=== PATIENT | male | born 1980 | race Caucasian/White ===

== ENCOUNTER 2024-06-27 01:00 | Emergency (ER) | payer OTHER, SELFPAY ==
[2024-06-27] VITALS (14 sets, daily range): BP systolic 101–136; BP diastolic 76–99; BMI 25.0
--- NOTE | 2024-06-27 01:41 | ED.GENMED ---
History of Present Illness
General
Chief Complaint: Chest Pain
Source: patient and records
Exam Limitations: none
Time Seen by Provider: 06/27/24 01:13
Nursing documentation reviewed up to this point in time: agreed with
History of Present Illness
History of Present Illness:
43-year-old male with past medical history of anxiety and depression presents to the emergency department for evaluation of chest pain. Patient reports onset of symptoms 2 days ago and they have been constant since that time although today they
feel worse. He reports pressure in his chest 'like someone stepping on my chest.' He says it radiates towards his back. Associated with nausea. He reports he has had a headache. He says that he has had some mild shortness of breath. He says
that he had surgery in his right leg for a fracture 3 years ago and has chronic soreness but he feels it has been a bit worse. He says that he has been drinking heavily for the past few days and he thinks he could have pancreatitis again�chart
review shows multiple previous visits for pancreatitis. In addition to physical complaints as above he says that he has been very depressed for the past few days because his cat . He says that over the weekend he was crying uncontrollably. He
says that over the weekend he even had some suicidal thoughts but he says that he does not feel suicidal at present.
Past History
Past History
ED Past Medical History: Other (Pancreatitis)
ED Past Surgical History: Orthopedic
Social History
Tobacco: Non-smoker
Alcohol: Occasional
Living: with family
Employment: Employed
Review of Systems
Review of Systems
All Other Systems: ROS reviewed and negative except as documented in HPI and ROS
Constitutional: Denies fever or chills
Respiratory: Reports trouble breathing; Denies cough
Cardiac: Reports chest pain; Denies diaphoresis or palpitations
ABD/GI: Reports abdominal pain and nausea; Denies vomiting or diarrhea
: Denies dysuria, frequency or flank pain
Musculoskeletal: Reports muscle pain and back pain; Denies neck pain
Neurological: Reports headache; Denies dizzy, weakness or numbness
Phy Exam
Physical Exam
Physical Exam:
General: Awake, alert, oriented x3; anxious and tearful
Head: Normocephalic, atraumatic
Eyes: Conjunctiva normal
Throat: Airway intact, handling secretions
Neck: Trachea midline, supple without meningismus
Lungs: Clear to auscultation bilaterally, no wheezing, rales, rhonchi
Heart: Regular rate and rhythm, no murmurs, gallops, or rubs
Abd: Soft, non distended, mild tenderness in the epigastrium
Neuro: No gross deficits
Extremities: No edema in extremities, no calf tenderness, equal pulses in all extremities
Scores
Heart Failure Risk
Heart Failure Risk Score: Not Applicable
Heart Score for Chest Pain Patients
STEMI patient?: No
History: Slightly or Non-Suspicious
ECG: Normal
Age: </= 45 years
Risk Factors: No Risk Factors
Troponin: </= Normal Limit
Heart Score for Chest Pain Patients: 0
Heart Score Risk: 2.5% MACE over next 6 weeks
PE Wells Score
Symptoms of DVT: No
No alternative diagnosis better explains the illness: No
Tachycardia with pulse > 100: No
Immobilization (>=3 days) or surgery within previous 4 weeks: No
Prior history of DVT or pulmonary embolism: No
Presence of hemoptysis: No
Presence of malignancy: No
Pulmonary Embolism Risk Score: 0
Probability of PE: Pt is low risk
Withdrawal Assessment of Alcohol
Withdrawal Assessment Completed?: Not applicable
Course
Orders/Labs/Results
Orders:
Orders
06/27/24 01:02
ECG [Electrocardiogram (*1)] Urgent
Reason for Study: Chest Pain
EKG- Treatment ONCE
06/27/24 01:14
CR Chest - 2 Views Urgent
Comment:
Reason For Exam: cp
06/27/24 01:18
Crisis Consult Urgent
Reason for Consult: pt was feeling suicidal this past weekend; here with anxiety/depression
06/27/24 01:44
0.9% Sodium Chloride 1000 ml [Nss] 1,000 ml IV BOLUS
Ketorolac [Toradol] 15 mg IV NOW STA
06/27/24 01:46
Alcohol Urgent
Complete Blood Count/With Diff Urgent
Comprehensive Metabolic Panel Urgent
D-Dimer Urgent
LDH Urgent
Comment: ADD ON
Lipase Urgent
Troponin I Urgent
Urine Drug Abuse Screen Urgent
Date Specimen was Collected: 06/27/24
Time Specimen was Collected: 01:40
06/27/24 02:12
Add On- LAB Urgent
Tests Added?: LDH
06/27/24 02:14
ED Special Safety Observation ONCE
Observation level: Intermittent Observation
06/27/24 02:59
US Periph Venous LOWER Ext RT Urgent
Comment:
Reason For Exam: RLE pain, +dimer
06/27/24 03:15
HYDROmorphone [Dilaudid] 0.5 mg IV NOW STA
06/27/24 03:16
Thiamine Injection 100 mg IV NOW STA
06/27/24 03:30
0.9% Sodium Chloride 1000 ml [Nss] 1,000 ml IV 100 mls/hr
06/27/24 04:00
FOLic ACID [Folvite] 1 mg 0.9% Sodium Chloride 50 ml [Nss] 50 ml IV ONCE
06/27/24 04:04
CT Chest PE Study Urgent
Comment:
Reason For Exam: chest pain/back pain, +dimer
06/27/24 04:16
Mag Hydrox/Al Hydrox/Simeth [Maalox] 30 ml Phenobarb/Hyoscy/Atropine/Scop [] 10 ml Viscous Lidocaine 2% [Xylocaine Viscous Cup] 10 ml PO NOW
Pantoprazole [Protonix IV] 40 mg IV NOW STA
06/27/24 04:35
Mag Hydrox/Al Hydrox/Simeth [Maalox] 30 ml .ROUTE .STK-MED ONE
Phenobarb/Hyoscy/Atropine/Scop [] 10 ml .ROUTE .STK-MED ONE
Viscous Lidocaine 2% [Xylocaine Viscous Cup] 15 ml .ROUTE .STK-MED ONE
06/27/24 06:12
Alcohol Urgent
Abnormal Lab Results
06/27/24
01:46
RBC 4.52 L 10^6/uL
(4.70-6.10)
RDW 16.0 H %
(11.5-14.5)
Neutrophils % 32.1 L %
(42.2-75.2)
Lymphocytes % 57.7 H %
(20.5-51.1)
D-Dimer 0.75 H ug/mlFEU
(0.00-0.50)
Sodium 148 H mmol/L
(135-145)
Carbon Dioxide 31 H mmol/L
(22-30)
06/27/24 01:46
06/27/24 01:46
Vital Signs
Initial and Last Documented VS:
Initial Vital Signs
Temp Pulse Resp BP Pulse Ox
37.0 C 99 24 136/98 95
06/27/24 01:10 06/27/24 01:10 06/27/24 01:10 06/27/24 01:10 06/27/24 01:10
Last Documented Vital Signs
Temp Pulse Resp BP Pulse Ox
37.0 C 86 21 124/92 97
06/27/24 01:10 06/27/24 06:15 06/27/24 06:15 06/27/24 06:00 06/27/24 06:15
MDM/Problems Addressed
Differential Diagnosis Includes:
Pancreatitis, gastritis, GERD, ACS/angina, PE, pneumothorax, pneumonia
MDM/Problems Addressed:
43-year-old male presents for evaluation of chest pain rating to the back with multiple other associated signs and symptoms. Symptoms occurring in the setting of recent heavy alcohol use due to the of his cat. He also reports depression and
suicidal thoughts because of this. He does have multiple prior visits for acute pancreatitis. Vitals and exam as above. EKG shows sinus rhythm no STEMI. Will place an IV check labs including a CBC and a CMP, troponin, lipase. He did report some
acute on chronic right leg pain�she has no signs or symptoms of DVT but will check D-dimer. Check alcohol level. Will send for chest x-ray. Treat symptomatically. Given fluids, thiamine and folate. Reassess after the above. I did discuss with
crisis to assess once medically cleared.
Labs reviewed: CBC unremarkable, CMP no clinically significant abnormalities. Troponin undetectable. Lipase is still pending. D-dimer was elevated will check ultrasound of the right leg, CT chest. UDS negative. Alcohol level pending. Chest
x-ray reviewed by me shows no acute disease. Patient still having pain we will provide additional pain control. Reassess.
CTA shows no PE or other acute pathology. At this point I have very low suspicion for emergent pathology. Suspect likely acute alcoholic gastritis causing lower chest/back pain as well as some component of anxiety which patient admits. He was
treated symptomatically and feels improved. Will discussed with crisis for assessment regarding his suicidal thoughts.
Crisis performed their assessment and had a long discussion with the patient�no longer feeling suicidal he plans to follow-up with his therapist. He is forward thinking and goal oriented�says he is planning to buy a new cat and start going back to
the gym. No indication for involuntary psychiatric treatment and I think outpatient follow-up with a therapist is a reasonable plan. Advised alcohol cessation. Alcohol level downtrending. He is planning to call his partner to pick him up to take
him home�I think he is stable for discharge.
Chronic conditions affecting care:
Anxiety and depression
*Radiology
Radiology exam reviewed: preliminary read by ED provider
*Pulse Oximetry
Patient hypoxic: no
*EKG
Interpreted by ED Provider?: Yes
Heart Rate: 77
Rate: normal
Rhythm: sinus
[place]: normal axis
Interval: normal interval
QRS Pattern: normal QRS
Ischemia: no ischemia
*Critical Care Note
Total Time (30-74mins, 75-104mins- exclusive of procedures): Not Applicable
Data Reviewed
Review of Other/Old Records Reveals: Labs and Records
Source: patient and records
Patient Management
Discussion with other providers: Other (Discussed with crisis staff)
ED Attending Note
-
Portions of this chart may have been created with voice recognition software.� Occasional wrong word or��sound alike� substitutions may have occurred due to the inherent limitations of voice recognition software.
Discharge Plan
Departure
Patient with high blood pressure during this ER visit?: No
Discharge Problem:
Chest pain, Alcoholic gastritis, Alcohol intoxication, Leg pain, right
Instructions: Gastritis, Alcohol intoxication - ED discharge instructions, Chest Pain PCP Follow Up
Prescriptions:
No Action
milk thistle 175 MG tablet
175 mg PO DAILY
turmeric 400 MG capsule
400 mg PO DAILY
Theragen Tablet
1 tab PO DAILY
cyanocobalamin (vitamin B-12) 250 mcg Tablet
250 mcg PO DAILY
Visbiome 112.5 billion cell Capsule
1 cap PO DAILY
salmon oil-omega-3 fatty acids 1,000-210 mg Capsule
1 cap PO DAILY
fluoxetine 40 mg Capsule
40 mg PO DAILY
Referrals:
UNKNOWN - PT DOES,NOT KNOW [Family Provider] -
Activity Restrictions/Additional Instructions:
Thank you for visiting the Emergency Department at [facility].
1. Please schedule a follow up appointment as directed. Call first thing tomorrow morning to make an appointment.
2. If indicated, please take your medications as instructed and indicated on discharge paperwork.
3. If any of your symptoms do not improve, or persist, or become more severe within 6-12 hours, please return to the emergency department for further care.
4. Please return to the emergency department if you develop a headache, neck pain/stiffness, fever greater than 100.4F, chest pain, shortness of breath, persistent nausea, vomiting, slurred speech, difficulty walking, numbness/tingling, weakness,
signs of infection or any other symptoms that are worrisome to you.
Please call [phone] if you have any questions.
Interventions
Interventions:
*Risk Screen - Suicide Last Done: 06/27/24 01:10
*General Assessment Last Done: 06/27/24 06:49
*Neglect/Abuse Screening Last Done: 06/27/24 01:10
*ED- Fall Risk Assessment Last Done: 06/27/24 01:10
*ED COVID-19 Vaccine History Last Done: 06/27/24 01:10
ED- Cardiac Assessment Last Done: 06/27/24 02:09
Discharge Date and Time
Print Language: ARGENTINE
[2024-06-27 01:58] LABS: Hematocrit 39.3 % (39.0-52.0); Hemoglobin 13.6 g/dL (13.0-18.0); Mean Corp Hgb Conc. 34.6 g/dL (33.0-37.0); Mean Corpuscular Hgb 30.1 pg (27.0-31.0); Mean Corpuscular Volume 86.9 fL (80.0-94.0); Mean Platelet Volume 9.3 fL (7.4-10.4); Platelet Count 217 10^3/uL (130-400); Red Blood Cell Count 4.52 10^6/uL (4.70-6.10); White Blood Cell Count 4.8 10^3/uL (4.8-10.8)
[2024-06-27] MEDS: NSS 1000 IV ×2 (02:03→03:58)
[2024-06-27] MEDS: TORADOL 15 MG IV (02:04)
[2024-06-27 02:09] LABS: % Basophils 0.8 % (0-2); % Eosinophils 1.5 % (0-6); % Lymphocytes 57.7 % (20.5-51.1); % Monocytes 7.9 % (1.7-9.3); % Neutrophils 32.1 % (42.2-75.2); Absolute Eosinophils 0.1 10^3/uL (0-0.7); Absolute Lymphocytes 2.8 10^3/uL (1.2-3.4); Absolute Monocytes 0.4 10^3/uL (0.1-0.6); Absolute Neutrophils 1.6 10^3/uL (1.4-6.5); Nucleated Red Blood Cells % 0 % (-)
[2024-06-27 02:23] LABS: ALT (SGPT) 31 U/L (0-50); AST (SGOT) 49 U/L (17-59); Albumin 4.5 g/dl (3.5-5.0); Alkaline Phosphatase 83 U/L (38-126); Blood Urea Nitrogen 11 mg/dl (9-20); Calcium 8.6 mg/dl (8.4-10.2); Carbon Dioxide 31 mmol/L (22-30); Chloride 107 mmol/L (98-107); Estimated Creatinine Clearance > 125 ml/min; Glucose 96 mg/dl (70-99); Potassium 4.3 mmol/L (3.5-5.1); Sodium 148 mmol/L (135-145); Total Bilirubin 0.4 mg/dl (0.2-1.3); eGFR > 60.00
[2024-06-27 02:30] LABS: Troponin I < 0.012 ng/ml
[2024-06-27 02:35] LABS: Amphetamines Negative (Negative); Barbiturates Negative (Negative); Benzodiazepines Negative (Negative); Buprenorphine Negative (Negative); Cocaine Negative (Negative); Marijuana Negative (Negative); Methadone Negative (Negative); Methamphetamines Negative (Negative); Opiates Negative (Negative); Phencyclidine Negative (Negative); Tricyclic Antidepressants Negative (Negative)
[2024-06-27 02:37] LABS: D-Dimer 0.75 ug/mlFEU (0.00-0.50)
[2024-06-27] MEDS: DILAUDID 0.5 MG IV (03:24)
[2024-06-27 03:49] LABS: LDH 229 U/L (120-246); Lipase 187 U/L (23-300)
[2024-06-27] MEDS: THIAMINE INJECTION 100 MG IV (03:53)
[2024-06-27 03:57] LABS: Alcohol 359 mg/dl
[2024-06-27] MEDS: FOLVITE 50.2 MG IV (04:41)
[2024-06-27] MEDS: MAALOX 50 PO (04:42)
[2024-06-27] MEDS: PROTONIX IV 40 MG IV (05:05)
[2024-06-27 06:36] LABS: Alcohol 269 mg/dl
[2024-06-27] MEDS: TYLENOL 1000 MG PO (07:20)
[2024-06-27] MEDS: NSS IV (13:53)
[2024-06-27 13:59] LABS: Alcohol 146 mg/dl
== END 2024-06-27 15:24 | disposition home or self-care (01) ==
LOC: EMR 01:00
PROVIDERS: EMERGENCY PHYSICIAN Emergency Medicine
DX: R07.9 Chest pain, unspecified (principal); K29.20 Alcoholic gastritis without bleeding; F10.129 Alcohol abuse with intoxication, unspecified; Y90.9 Presence of alcohol in blood, level not specified; M79.604 Pain in right leg; R79.1 Abnormal coagulation profile; Z86.39 Personal history of other endocrine, nutritional and metabolic disease
CPT/HCPCS: 99285; 96365; 96375; 96361; 71046; 71275; 80053; 80306; 82077; 83615; 83690; 84484; 85025; 85379; 93005; 93971; Q9967

== ENCOUNTER 2024-06-29 12:50 | Inpatient (IN) | payer OTHER, SELFPAY ==
[2024-06-29] VITALS (10 sets, daily range): BP systolic 136–172; BP diastolic 71–109; BMI 23.8
[2024-06-29 10:33] LABS: % Basophils 0.1 % (0-2); % Immature Granulocytes 0.6 % (0-0.5); % Lymphocytes 9.4 % (20.5-51.1); % Monocytes 6.7 % (1.7-9.3); % Neutrophils 83.2 % (42.2-75.2); Absolute Immature Granulocytes 0.1 10^3/uL (0-0.05); Absolute Lymphocytes 0.8 10^3/uL (1.2-3.4); Absolute Monocytes 0.6 10^3/uL (0.1-0.6); Absolute Neutrophils 7.3 10^3/uL (1.4-6.5); Hematocrit 37.7 % (39.0-52.0); Hemoglobin 13.1 g/dL (13.0-18.0); Mean Corp Hgb Conc. 34.7 g/dL (33.0-37.0); Mean Corpuscular Hgb 29.6 pg (27.0-31.0); Mean Corpuscular Volume 85.1 fL (80.0-94.0); Mean Platelet Volume 9.7 fL (7.4-10.4); Nucleated Red Blood Cells % 0 % (-); Platelet Count 183 10^3/uL (130-400); Red Blood Cell Count 4.43 10^6/uL (4.70-6.10); Red Cell Dist. Width 15.4 % (11.5-14.5); White Blood Cell Count 8.8 10^3/uL (4.8-10.8)
[2024-06-29 10:48] LABS: ALT (SGPT) 26 U/L (0-50); AST (SGOT) 37 U/L (17-59); Albumin 4.2 g/dl (3.5-5.0); Alkaline Phosphatase 92 U/L (38-126); Blood Urea Nitrogen 13 mg/dl (9-20); Calcium 9.2 mg/dl (8.4-10.2); Carbon Dioxide 23 mmol/L (22-30); Chloride 102 mmol/L (98-107); Estimated Creatinine Clearance > 125 ml/min; Glucose 123 mg/dl (70-99); Magnesium 1.4 mg/dl (1.6-2.3); Potassium 3.7 mmol/L (3.5-5.1); Sodium 137 mmol/L (135-145); Total Bilirubin 1.5 mg/dl (0.2-1.3); Total Protein 6.8 g/dl (6.3-8.2); eGFR > 60.00
[2024-06-29 10:52] LABS: Alcohol None Detected
[2024-06-29] MEDS: PEPCID 20 MG IV (10:53)
[2024-06-29] MEDS: ZOFRAN 4 MG IV (10:53)
[2024-06-29] MEDS: NSS 1000 IV (10:53)
[2024-06-29 11:19] LABS: Lipase > 4000 U/L (23-300)
[2024-06-29] MEDS: DILAUDID 0.5 MG IV (11:58)
--- NOTE | 2024-06-29 12:18 | ED.GENMED ---
History of Present Illness
General
Chief Complaint: Chest Pain
Source: patient
Exam Limitations: none
Time Seen by Provider: 06/29/24 10:38
History of Present Illness
History of Present Illness:
43-year-old male presents complaining of epigastric abdominal pain that radiates to the back with associated nausea vomiting and dry heaves. He was here 2 days ago for similar symptoms thought to have gastritis. PE study at that time was negative
lipase was negative. He notes ongoing and worsening symptoms now with inability tolerate anything by mouth. No fevers. No other
Past History
Past History
ED Past Medical History: Other (Pancreatitis)
ED Past Surgical History: Orthopedic
Social History
Tobacco: Non-smoker
Alcohol: Occasional
Living: with family
Employment: Employed
Phy Exam
Physical Exam
Physical Exam:
General: Well-appearing but uncomfortable male no acute respiratory distress
HEENT: Normocephalic atraumatic sclera anicteric
Heart: Regular rate rhythm
Lungs: Clear no wheeze
Abdomen soft tender to the epigastric region no guarding or rebound normal bowel sounds nondistended
Scores
Heart Score for Chest Pain Patients
STEMI patient?: No
History: Slightly or Non-Suspicious
ECG: Normal
Age: </= 45 years
Risk Factors: No Risk Factors
Troponin: </= Normal Limit
Heart Score for Chest Pain Patients: 0
Heart Score Risk: 2.5% MACE over next 6 weeks
Course
Orders/Labs/Results
Orders:
Orders
06/29/24 09:49
ECG [Electrocardiogram (*1)] Urgent
Reason for Study: Chest Pain
EKG- Treatment ONCE
06/29/24 10:23
Alcohol Urgent
Complete Blood Count/With Diff Urgent
Comprehensive Metabolic Panel Urgent
Lipase Urgent
Magnesium Urgent
06/29/24 10:48
0.9% Sodium Chloride 1000 ml [Nss] 1,000 ml IV BOLUS
Famotidine [Pepcid] 20 mg IV NOW STA
Ondansetron Injectable [Zofran] 4 mg IV NOW STA
06/29/24 11:40
HYDROmorphone [Dilaudid] 0.5 mg IV NOW STA
Abnormal Lab Results
06/29/24
10:23
RBC 4.43 L 10^6/uL
(4.70-6.10)
Hct 37.7 L %
(39.0-52.0)
RDW 15.4 H %
(11.5-14.5)
Abs Immat Gran (auto) 0.1 H 10^3/uL
(0-0.05)
Absolute Neuts (auto) 7.3 H 10^3/uL
(1.4-6.5)
Absolute Lymphs (auto) 0.8 L 10^3/uL
(1.2-3.4)
Immature Gran % 0.6 H %
(0-0.5)
Neutrophils % 83.2 H %
(42.2-75.2)
Lymphocytes % 9.4 L %
(20.5-51.1)
Glucose 123 H mg/dl
(70-99)
Magnesium 1.4 L mg/dl
(1.6-2.3)
Total Bilirubin 1.5 H D mg/dl
(0.2-1.3)
Lipase > 4000 H* U/L
(23-300)
06/29/24 10:23
06/29/24 10:23
Vital Signs
Initial and Last Documented VS:
Initial Vital Signs
Temp Pulse Resp BP Pulse Ox
98.4 F 67 18 169/96 100
06/29/24 09:56 06/29/24 09:56 06/29/24 09:56 06/29/24 09:56 06/29/24 09:56
Last Documented Vital Signs
Temp Pulse Resp BP Pulse Ox
97.6 F 69 23 136/71 100
06/29/24 10:22 06/29/24 10:22 06/29/24 10:22 06/29/24 10:22 06/29/24 10:22
MDM/Problems Addressed
Differential Diagnosis Includes:
Abdominal pain with back pain and nausea and back pain. History of pancreatitis. Consider recurrent pancreatitis versus gastritis versus viral illness
Reviewed record from 2 days ago. PE study of the chest was negative. Suspected gastritis at that time. Today lipase is greater than 4000. Patient has acute pancreatitis with significant pain and inability tolerate by mouth intake. Fluids Zofran
Dilaudid ordered. Will admit to hospital
*Critical Care Note
Total Time (30-74mins, 75-104mins- exclusive of procedures): Not Applicable
ED Attending Note
-
Portions of this chart may have been created with voice recognition software.� Occasional wrong word or��sound alike� substitutions may have occurred due to the inherent limitations of voice recognition software.
Discharge Plan
Departure
Patient Disposition: Admit
Date of Disposition: 06/29/24
Time of Disposition: 12:21
Presentation/result/management discussed w/ accepting MD/DO: Hospitalist
Discharge Problem:
Pancreatitis, acute
Prescriptions:
No Action
fluoxetine 40 mg Capsule
40 mg PO DAILY
pantoprazole 40 mg tablet,delayed release (DR/EC)
40 mg PO DAILY Qty: 30 0RF
Referrals:
Marybeth Humphrey PA [Family Provider] -
Interventions
Interventions:
*Risk Screen - Suicide Last Done: 06/29/24 09:56
*General Assessment Last Done: 06/29/24 09:56
*Neglect/Abuse Screening Last Done: 06/29/24 09:56
*ED- Fall Risk Assessment Last Done: 06/29/24 10:22
*ED COVID-19 Vaccine History Last Done: 06/29/24 10:22
ED- Cardiac Assessment Last Done: 06/29/24 10:22
Discharge Date and Time
Print Language: FRENCH
--- NOTE | 2024-06-29 12:26 | HPS.HSE ---
Family Physician
-
Family Physician: CLAYTON Blake
Chief Complaint
-
acute epigastric pain
History of Present Illness
43M HX ETOH related pancreatitis, ETOH use disorder seen at ER:
- acute epigastric abdominal pain that radiates to the back with associated nausea vomiting and dry heaves.
- seen at ER 2 days ago for similar symptoms thought to have gastritis.
- ongoing and worsening symptoms now with inability tolerate anything by mouth.
- No fevers
Medical History
Past Medical History
Past Medical History: Reports Other
Additional Past Medical History:
pancreatitis
Past Surgical History: Reports None
Social History
Tobacco: Non-smoker
Alcohol: Daily
Drug: None
Living: Alone
Employment: Employed
Family History
Family History: Not pertinent
Allergies / Home Medications
Allergies reflects when Allergies were last updated in [facility].
Home Medications with original date entered in [facility]
Allergy/Medication List:
Allergies
Allergy/AdvReac Type Severity Reaction Status Date / Time
No Known Allergies Allergy Verified 08/06/22 09:22
Home Medications
B-complex with vitamin C 1 cap PO DAILY Supplement 08/23/21
Oregano Oil/Flaxseed Oil [Oregano Oil 50-25 Mg Capsule] 1 cap PO DAILY 08/23/21
Super Colon Cleanse 2 cap PO BID 08/23/21
acetaminophen 325 mg tablet 650 mg PO Q4H PRN mild pain 08/23/21
gabapentin 300 mg capsule 300 mg PO TID PRN mild to mod pain 08/23/21
dcdtydtpnl-fpownxprywce-slpsok 100 mg-500 mg-50 mg capsule 1 cap PO DAILY Infection 08/23/21
melatonin 5 mg tablet 10 mg PO HS Sleep ##0 08/23/21
milk thistle 175 mg tablet 175 mg PO DAILY 08/23/21
oxycodone 10 mg tablet 10 mg PO BID PRN severe pain 08/23/21
peppermint oil 50 mg capsule,delayed release 50 mg PO DAILYPRN PRN ibs 08/23/21
salmon oil-omega-3 fatty acids 1,000 mg-200 mg capsule 1 cap PO DAILY 08/23/21
turmeric 400 mg capsule 400 mg PO DAILY 08/23/21
omeprazole 40 mg capsule,delayed release 40 mg PO DAILY 08/06/22
Review of Systems
-
Constitutional: Reports No Symptoms
EENT: Reports No Symptoms
Respiratory: Reports No Symptoms
Cardiac: Reports No Symptoms
Abdomen/GI: Reports Abdominal Pain, Nausea, Vomiting and Other (dry heaves )
: Reports No Symptoms
Musculoskeletal: Reports No Symptoms
Skin: Reports No Symptoms
Neurological: Reports No Symptoms
Endocrine: Reports No Symptoms
Hematologic/Lymphatic: Reports No Symptoms
Psych: Reports No Symptoms
Physical Exam
Vital Signs
Vital Signs
Temp Pulse Resp BP Pulse Ox
97.6 F 69 23 136/71 100
06/29/24 10:22 06/29/24 10:22 06/29/24 10:22 06/29/24 10:22 06/29/24 10:22
Physical Exam
General: Well Developed, Well Nourished and No Apparent Distress
HEENT: NormoCephalic, Moist mucous membranes and Atraumatic
Respiratory: Clear
Cardiac: S1/S2 and Regular Rhythm; No Murmur or Rub
GI: Soft, Non Tender, Non Distended and Normal Bowel Sounds; No Organomegaly
Rectal: Deferred by Provider
Musculoskeletal: No Clubbing, No Cyanosis and No Edema
Skin: No Rash
Neuro: AO x 3 and Nonfocal/grossly intact
Laboratory Results
-
06/29/24 10:23
06/29/24 10:23
Laboratory Results
Total Bilirubin 1.5 mg/dl (0.2-1.3) H D 06/29/24 10:23
AST 37 U/L (17-59) 06/29/24 10:23
ALT 26 U/L (0-50) 06/29/24 10:23
Alkaline Phosphatase 92 U/L (38-126) 06/29/24 10:23
Lipase > 4000 U/L (23-300) H* 06/29/24 10:23
Data Reviewed
-
CT Scan: Report Reviewed by me
Ultrasound: Report Reviewed by me
Lab Data: Labs Reviewed by me
Old Records: Reviewed
Impression/Plan
-
Selected Entries
06/29/24
09:56 06/29/24
10:21 06/29/24
10:22
Temp 98.4 F
Pulse 67 73
Resp Rate 18
Blood pressure 169/96 136/71
SaO2 100
Oxygen Mode of Delivery Room air
Actual Weight 81.647 kg
Body Mass Index (BMI) 23.8
06/29/24
10:23
WBC 8.8
Hgb 13.1
Plt Count 183
Creatinine 0.7
eGFR > 60.00
Magnesium 1.4 L
Total Bilirubin 1.5 H D
AST 37
ALT 26
Alkaline Phosphatase 92
Lipase > [address] Chest PE Study
1. No evidence of pulmonary embolism or thoracic aortic dissection.
2. Clear lungs.
US Periph Venous LOWER Ext RT
No evidence of right lower extremity deep venous thrombosis from the common femoral through the upper calf veins.
Last hospitalist admission: 08/06/2022 - 08/07/2022
DC DCx: Acute alcohol induced pancreatitis.
ASSESSMENT & PLAN
Pending Rx reconciliation
Acute pancreatitis - suspect recurrent ETOH related pancreatitis: Today, lipase is greater than 4000 with significant pain and inability to tolerate PO.
- pw Abdominal pain with back pain, vomiting.
- HX pancreatitis
- nl LFTs
- NPO
- LR IVF 200/H
- PRN Dilaudid analgesia
- PRN IV Zofran
- trend lipase and liver enzymes
- GI consult
ETOH use disorder
- Last ETOH use; on 06/24/24 ( 4-5 days ago)
- clinically low risk for ETOH WDS
- ETOH W protocol
- monitor MSAS score
HX f R leg surgery with chronic pain
- on Gabapentin/Oxycodone
DVT Px: LMWH
Full code
IP MS
--- NOTE | 2024-06-29 13:22 | EDRN ---
this RN called the receiving unit and notified them that paper report was going to be tubed up
[2024-06-29] MEDS: DILAUDID 1 MG IV ×3 (14:30→21:03)
[2024-06-29] MEDS: LR 1000 IV ×2 (14:31→20:15)
[2024-06-29] MEDS: COMPAZINE 10 MG IV (15:08)
[2024-06-29 15:51] LABS: GGTP 23 U/L (15-73)
[2024-06-29 15:53] LABS: Alcohol None Detected
[2024-06-29 16:46] LABS: APTT 25.6 Sec (23.4-35.0); PT 13.5 Sec (11.4-14.6)
[2024-06-29] MEDS: MAGNESIUM SULFATE 100 IV (17:18)
[2024-06-29] MEDS: COMPAZINE 5 MG IV (18:04)
[2024-06-29] MEDS: LOVENOX SC (18:10)
[2024-06-29 18:24] LABS: Amphetamines Negative (Negative); Barbiturates Positive (Negative); Benzodiazepines Negative (Negative); Buprenorphine Negative (Negative); Cocaine Negative (Negative); Marijuana Negative (Negative); Methadone Negative (Negative); Methamphetamines Negative (Negative); Opiates Positive (Negative); Phencyclidine Negative (Negative); Tricyclic Antidepressants Negative (Negative)
[2024-06-29 18:34] LABS: Fentanyl, Urine Negative (Negative)
[2024-06-29] MEDS: THIAMINE INJECTION 200 MG IV (20:09)
[2024-06-30] MEDS: DILAUDID 1 MG IV ×5 (00:04→20:32)
[2024-06-30] MEDS: COMPAZINE 5 MG IV ×2 (00:05→06:05)
[2024-06-30] MEDS: FLUSH (NSS) 2 FLUSH IV ×2 (00:06→06:06)
[2024-06-30] MEDS: LR 1000 IV ×4 (00:58→17:24)
[2024-06-30 07:04] LABS: Hematocrit 38.7 % (39.0-52.0); Mean Corp Hgb Conc. 33.6 g/dL (33.0-37.0); Mean Corpuscular Hgb 29.9 pg (27.0-31.0); Mean Platelet Volume 10.6 fL (7.4-10.4); Platelet Count 153 10^3/uL (130-400); Red Blood Cell Count 4.35 10^6/uL (4.70-6.10); Red Cell Dist. Width 15.6 % (11.5-14.5); White Blood Cell Count 8.7 10^3/uL (4.8-10.8)
[2024-06-30 07:39] VITALS: BP 136/83
[2024-06-30 07:53] LABS: ALT (SGPT) 22 U/L (0-50); AST (SGOT) 32 U/L (17-59); Albumin 3.5 g/dl (3.5-5.0); Alkaline Phosphatase 66 U/L (38-126); Blood Urea Nitrogen 10 mg/dl (9-20); Calcium 8.4 mg/dl (8.4-10.2); Carbon Dioxide 28 mmol/L (22-30); Chloride 99 mmol/L (98-107); Estimated Creatinine Clearance > 125 ml/min; Glucose 85 mg/dl (70-99); Magnesium 1.7 mg/dl (1.6-2.3); Phosphorus 3.4 mg/dl (2.5-4.5); Potassium 3.7 mmol/L (3.5-5.1); Sodium 134 mmol/L (135-145); Total Bilirubin 1.1 mg/dl (0.2-1.3); Total Protein 5.9 g/dl (6.3-8.2); eGFR > 60.00
[2024-06-30 08:06] LABS: Lipase 2645 U/L (23-300)
[2024-06-30] MEDS: FOLVITE 1 MG PO (08:21)
[2024-06-30] MEDS: NSS (PRESERVATIVE FREE) 10 ML IV (08:21)
[2024-06-30] MEDS: THIAMINE INJECTION 200 MG IV ×2 (08:21→20:25)
[2024-06-30] MEDS: PROTONIX IV 40 MG IV (08:22)
--- NOTE | 2024-06-30 08:26 | CON.GI ---
Addendum entered and electronically signed by Billy Hyde MD 06/30/24 08:58:
Physical exam:
General: NAD
HEENT: MMM, anicteric, no lymphadenopathy
Heart: Regular, no murmurs
Lungs: CTA bilaterally
Abdomen: normal bowel sounds, soft, minimal epigastric tenderness, no rebound or guarding, no masses, bruits or ascites
Extremeties: no edema
Skin: no rashes
Original Note:
Consultation
-
Date/Time Consultation Performed: 06/30/24
Performing Provider: Dell Hyde MD
Reason for Consultation: pancreatitis
Medical History
Chief Complaint / HPI
Chief Complaint: abdominal pain
History of Present Illness:
The patient is a 43-year-old male with past medical history as noted with pancreatitis and abdominal pain. He states that he started having more lower chest discomfort, after having significant alcohol, though then developed more abdominal pain
radiating to the back with associated nausea, consistent with his previous pancreatitis episodes. Upon admission he was found to have lipase greater than 4000, normal LFTs, hemoglobin 13.1. After IV fluids overnight he is been feeling much better,
with decreased pain, no further vomiting. He has had recurrent episodes of pancreatitis, initial imaging with probable pancreatic pseudocyst. Repeat MRI as a follow-up which showed decrease in size of the cyst. He did follow-up with Dr. Roper as an
outpatient, was scheduled to see him again this year in the office, though has not done so yet.
Past Medical History
Past Medical History: Other (Alcohol abuse, alcohol induced pancreatitis)
Past Surgical History: None
Social History
Tobacco: Non-Smoker
Alcohol: Daily
Family History
Family History: Reviewed & Not Pertinent
Allergies / Home Medications
Allergy/AdvReac Type Severity Reaction Status Date / Time
No Known Allergies Allergy Verified 06/29/24 09:55
�Medication �Instructions �Recorded
fluoxetine 40 mg capsule 40 mg PO DAILY 06/27/24
pantoprazole 40 mg tablet,delayed 40 mg PO DAILY #30 tabs 06/27/24
release
Review of Systems
-
All other systems: A 12 pt ROS was Negative except as stated above in HPI
Vital Signs
Temp Pulse Resp BP Pulse Ox
98.6 F 81 17 136/83 96
06/30/24 07:39 06/30/24 07:39 06/30/24 07:39 06/30/24 07:39 06/30/24 07:39
Physical Exam
Results
WBC 8.7 10^3/uL (4.8-10.8) 06/30/24 06:01
Hgb 13.0 g/dL (13.0-18.0) 06/30/24 06:01
Hct 38.7 % (39.0-52.0) L 06/30/24 06:01
MCV 89.0 fL (80.0-94.0) 06/30/24 06:01
Plt Count 153 10^3/uL (130-400) 06/30/24 06:01
Absolute Neuts (auto) 7.3 10^3/uL (1.4-6.5) H 06/29/24 10:23
PT 13.5 Sec (11.4-14.6) 06/29/24 16:16
INR 1.00 06/29/24 16:16
APTT 25.6 Sec (23.4-35.0) 06/29/24 16:16
Sodium 134 mmol/L (135-145) L 06/30/24 06:01
Potassium 3.7 mmol/L (3.5-5.1) 06/30/24 06:01
Chloride 99 mmol/L (98-107) 06/30/24 06:01
Carbon Dioxide 28 mmol/L (22-30) 06/30/24 06:01
BUN 10 mg/dl (9-20) 06/30/24 06:01
Creatinine 0.6 mg/dL (0.7-1.3) L 06/30/24 06:01
Calcium 8.4 mg/dl (8.4-10.2) 06/30/24 06:01
Total Bilirubin 1.1 mg/dl (0.2-1.3) 06/30/24 06:01
AST 32 U/L (17-59) 06/30/24 06:01
ALT 22 U/L (0-50) 06/30/24 06:
Alkaline Phosphatase 66 U/L (38-126) 06/30/24 06:01
Lipase 2645 U/L (23-300) H* 06/30/24 06:01
Diagnostic Image Results:
CT 2022:
IMPRESSION: CT findings compatible with pancreatitis with edema surrounding the pancreas.
Within the anterior body of the pancreas, there is a 1.6 cm round low-density lesion, which could represent a developing pseudocyst. A small intrapancreatic abscess is a possibility but less likely. Continued follow-up should be considered, as
warranted. The splenic vein and SMV are patent as well as the main portal vein.
MRI 2023:
The patient did have an MRI in October 2023 that showed an 8 x 10 mm ovoid lesion in the pancreatic neck at the site of larger cystic lesion.
Prior GI Procedures:
EGD:
Colonoscopy:
Assessment / Plan
-
1. Pancreatitis: Acute, secondary to alcohol, without signs of end organ damage or severe hemoconcentration, likely interstitial, overall improving after aggressive IV fluids. At this point we will continue IV fluids, will start clear liquid diet
today. If continues to improve then possible able to decrease fluids and advance diet tomorrow. Will hold on imaging for now without any suggestion of necrosis if continues to clinically improve, did have decreasing probable pseudocyst on imaging
last year. Will follow-up with Dr. Roper in the office on discharge. We again stressed the importance of complete alcohol abstinence.
-
-
Thank you for consultation and allowing me to participate in the patient's care. Please call the loss prevention manager GI physician during the after hours with any questions or concerns.
--- NOTE | 2024-06-30 10:57 | CM ---
Patient with Hx ETOH related pancreatitis, ETOH use disorder, chronic pain with Dx pancreatitis. Tox screen noted. Clear liquids. Receiving IVF. Per nursing; assist of 1 for mobility.
Met with patient who resides alone in a 3rd floor unit in a multi story loft building with 2 outside stairs and elevator access, in the [facility] of [facility].
The patient was independent in ADLs and ambulation.
He was active & drives. He was working for himself doing photography.
No DME or prior VN.
PCP- Marybeth Humphrey
Pharmacy - [facility] [address] [facility] [id number]
CM Consult: Substance Abuse
Patient relays that he has not been taking care of himself very well recently, due to the loss of his beloved cat who had cancer. He has not been eating or sleeping well.
Patient says he has been seeing a CPT/cognitive processing therapy therapist (psychologist) and also doing hypnotherapy, and feels that he can manage his Etoh/drug use on his own. He states he has an appointment tomorrow with his therapist that he
is hoping to keep, however he may be looking for a new therapist.
Offered [facility] for outpatient resources and patient declined, saying he wants to get his medical problems dealt with before committing to any new programs.
Patient says his SO Jacques has been supportive.
No CM d/c needs identified.
Plan home.
--- NOTE | 2024-06-30 11:19 | W.PN.HOSP.TC ---
Today's Communication/Plan
-
Dec IVF
Clears
pain control
incentive spirometery
encourage oob
Assessment / Plan
Assessment / Plan
Acute pancreatitis - suspect recurrent ETOH related pancreatitis:
- HX pancreatitis
- diet advanced to clears. monitor for tolerance
- LR IVF decrease rate
- PRN Dilaudid analgesia
- PRN IV Zofran
- lipase downtrending
- If worsening pain then check imaging. Per gi, okay to hold for now.
- OOB/incentive spirometer
- GI consult
ETOH use disorder
- Last ETOH use; on 06/24/24 ( 4-5 days ago)
- clinically low risk for ETOH WDS
- ETOH W protocol
- monitor MSAS score
HX f R leg surgery with chronic pain
- on Gabapentin/Oxycodone
DVT Px: LMWH
Full code
Anticipated Discharge: > 48 hours
Subjective/Interval History
-
Date of Service: June 30, 2024
states of mild improvement in pain
nausea is improving
Objective Data
-
Labs:
Laboratory Results
06/30/24
06:01
WBC 8.7
Hgb 13.0
Hct 38.7 L
Plt Count 153
Sodium 134 L
Potassium 3.7
Chloride 99
Carbon Dioxide 28
BUN 10
Creatinine 0.6 L
Glucose 85
Calcium 8.4
Total Bilirubin 1.1
AST 32
ALT 22
Alkaline Phosphatase 66
Vital Signs:
Vital Signs
Temp Pulse Resp BP Pulse Ox
98.6 F 81 17 136/83 96
06/30/24 07:39 06/30/24 07:39 06/30/24 07:39 06/30/24 07:39 06/30/24 07:39
I&O
06/29/24 06/30/24 07/01/24
06:59 06:59 06:59
Intake Total 2450 / 2450
Output Total 450 / 450
Balance 1999
Physical Exam
-
General: Well Developed, Well Nourished and No Apparent Distress
HEENT: Normocephalic, Atraumatic and Moist Mucous Membranes
Respiratory: Clear to Auscultation; Negative Wheezes, Rales or Rhonchi
Cardiac: Regular Rhythm and S1/S2
GI: Soft, Nondistended, Normal Bowel Sounds and Tender (umblical region )
Musculoskeletal: No Clubbing, No Cyanosis and No Edema
Skin: Warm and Dry
Neuro: Awake, Alert, Oriented, AO x 3 and No Motor Deficits; Negative Slurred Speech or Facial Droop
Psych: Calm
[2024-06-30] MEDS: ROXICODONE 5 MG PO (12:36)
[2024-06-30 15:20] VITALS: BP 135/84
[2024-06-30] MEDS: LOVENOX 40 MG SC (17:18)
[2024-06-30] MEDS: TYLENOL 650 MG PO (17:27)
[2024-06-30 21:25] VITALS: BMI 23.9
[2024-06-30 23:26] VITALS: BP 138/79
[2024-07-01] MEDS: ROXICODONE 5 MG PO (00:24)
[2024-07-01] MEDS: LR 1000 IV ×2 (00:25→06:32)
[2024-07-01] MEDS: DILAUDID 1 MG IV (04:14)
--- NOTE | 2024-07-01 05:32 | W.PN.GI.CBS2 ---
Today's Communication / Plan
-
Please see assessment and plan for details.
Assessment / Plan
-
1. Pancreatitis: Acute, secondary to alcohol, without signs of end organ damage or severe hemoconcentration, likely interstitial, overall improving after aggressive IV fluids. He is clinically much improved. At this point we will decrease IV
fluids and advance diet. If he tolerates diet this morning and is okay to DC from a GI standpoint. We discussed minimizing pain medicines. He will follow-up with Dr. Roper as an outpatient as planned.
Subjective
Subjective
Date of Service: July 01, 2024
Patient feeling okay, pain much improved overall, though still was taking some pain medicine given restlessness overnight, though ambulating better, tolerated clears without difficulty.
Objective
Data Reviewed
Laboratory Data:
Laboratory Results
06/30/24 06:01
Laboratory Results
PT 13.5 Sec (11.4-14.6) 06/29/24 16:16
INR 1.00 06/29/24 16:16
APTT 25.6 Sec (23.4-35.0) 06/29/24 16:16
Phosphorus 3.4 mg/dl (2.5-4.5) 06/30/24 06:01
Magnesium 1.7 mg/dl (1.6-2.3) 06/30/24 06:01
Total Bilirubin 1.1 mg/dl (0.2-1.3) 06/30/24 06:01
AST 32 U/L (17-59) 06/30/24 06:01
ALT 22 U/L (0-50) 06/30/24 06:01
Alkaline Phosphatase 66 U/L (38-126) 06/30/24 06:01
Lipase 2645 U/L (23-300) H* 06/30/24 06:01
Vital Signs and I&O:
Vital Signs
Temp Pulse Resp BP Pulse Ox
99.3 F 69 17 138/79 98
06/30/24 23:26 06/30/24 23:26 06/30/24 23:26 06/30/24 23:26 06/30/24 23:26
I&O
06/29/24 06/30/24 07/01/24
06:59 06:59 06:59
Intake Total 2450 / 2450 2340 / 2340
Output Total 450 / 450 600 / 600
Balance 1999 / 1999 1740 / 1740
Physical Exam
Physical Exam
General: NAD
Abdomen: normal bowel sounds, soft, no tenderness, no masses or bruits, no ascites
[2024-07-01 06:57] LABS: % Basophils 0.1 % (0-2); % Eosinophils 1.3 % (0-6); % Immature Granulocytes 0.1 % (0-0.5); % Lymphocytes 18.2 % (20.5-51.1); % Neutrophils 72.3 % (42.2-75.2); Absolute Eosinophils 0.1 10^3/uL (0-0.7); Absolute Lymphocytes 1.2 10^3/uL (1.2-3.4); Absolute Monocytes 0.5 10^3/uL (0.1-0.6); Absolute Neutrophils 4.9 10^3/uL (1.4-6.5); Hematocrit 35.2 % (39.0-52.0); Hemoglobin 11.9 g/dL (13.0-18.0); Mean Corp Hgb Conc. 33.8 g/dL (33.0-37.0); Mean Corpuscular Hgb 29.8 pg (27.0-31.0); Mean Corpuscular Volume 88.2 fL (80.0-94.0); Mean Platelet Volume 10.2 fL (7.4-10.4); Nucleated Red Blood Cells % 0 % (-); Platelet Count 151 10^3/uL (130-400); Red Blood Cell Count 3.99 10^6/uL (4.70-6.10); Red Cell Dist. Width 15.1 % (11.5-14.5); White Blood Cell Count 6.7 10^3/uL (4.8-10.8)
[2024-07-01 07:32] LABS: Lipase 926 U/L (23-300)
[2024-07-01 08:10] VITALS: BP 135/86
[2024-07-01] MEDS: THIAMINE INJECTION 200 MG IV (09:05)
[2024-07-01] MEDS: FOLVITE 1 MG PO (09:05)
[2024-07-01] MEDS: PROTONIX IV 40 MG IV (09:06)
[2024-07-01] MEDS: NSS (PRESERVATIVE FREE) 10 ML IV (09:06)
--- NOTE | 2024-07-01 11:01 | W.PN.HOSP.TC ---
Today's Communication/Plan
-
B vitamin supplements
Alcohol cessation
Discharge with OP follow-up
Assessment / Plan
Assessment / Plan
#Acute pancreatitis - suspect recurrent ETOH related pancreatitis:
- HX pancreatitis
- diet advanced to clears. monitor for tolerance
- LR IVF decrease rate
- PRN Dilaudid analgesia
- PRN IV Zofran
- lipase downtrending
- If worsening pain then check imaging. Per gi, okay to hold for now.
- OOB/incentive spirometer
- Tolerated full diet morning 07/01
- Encourage EtOH cessation
#ETOH use disorder
- Last ETOH use; on 06/24/24 ( 4-5 days ago)
- clinically low risk for ETOH WDS
- ETOH W protocol
- monitor MSAS score
- DC on folate 1 mg QD and thiamine 100 mg BID
#HX f R leg surgery with chronic pain
- on Gabapentin/Oxycodone
DVT Px: LMWH
Full code
Anticipated Discharge: Today
Subjective/Interval History
-
Date of Service: July 01, 2024
Seen and examined at the bedside. No acute events overnight. AFVSS
Ate a full breakfast this morning without any gastrointestinal symptoms afterward
Patient states he feels well and would like to go home
Objective Data
-
Labs:
Laboratory Results
07/01/24
06:36
WBC 6.7
Hgb 11.9 L
Hct 35.2 L
Plt Count 151
Vital Signs:
Vital Signs
Temp Pulse Resp BP Pulse Ox
99.0 F 70 18 135/86 99
07/01/24 08:10 07/01/24 08:10 07/01/24 08:10 07/01/24 08:10 07/01/24 08:10
I&O
06/30/24 07/01/24 07/02/24
06:59 06:59 06:59
Intake Total 2450 / 2450 4620 / 4620
Output Total 450 / 450 600 / 600
Balance 1999 4020 / 4020
Review of Systems
-
History Source: Patient
All other systems: Reviewed and negative
Physical Exam
-
General: Well Developed, Well Nourished, No Apparent Distress and Comfortable
HEENT: Normocephalic, Atraumatic and Moist Mucous Membranes
Respiratory: Clear to Auscultation and Non Labored Respirations
Cardiac: Regular Rhythm and S1/S2; Negative Murmur, Rub or Gallop
GI: Soft, Nontender, Nondistended and Normal Bowel Sounds
Musculoskeletal: No Clubbing, No Cyanosis and No Edema
Skin: Warm, Dry and Normal Turgor; Negative Rash or Jaundice
Neuro: AO x 3 and Nonfocal/Grossly Intact; Negative Tremors
Psych: Calm
Data Reviewed
-
Labs: Labs Reviewed by me and Discussed with Patient
--- NOTE | 2024-07-01 11:52 | CM ---
Patient seen at bedside, Patient states he has no needs at this time. Patient stated that his friend was picking him up later. Patient stated that he did not feel he had any needs for drug and alcohol treatment. CM will continue to follow for
discharge planning needs.
Plan; home with no needs
--- NOTE | 2024-07-01 15:57 | W.DCSUMMARY ---
Discharge Summary
Discharge Data
Date of Admission: 06/29/24
Date of Discharge: 07/01/24
Total time spent discharging patient (in min): 31
-
Pending Results: No
Hospital Course
Discharging Physician : Billy Woods DO
Disposition : Home
Principal Discharge diagnosis :
Acute pancreatitis secondary to alcohol use
Alcohol use
Chronic Discharge diagnosis :
GERD
Hospital Course :
43-year-old male that presented to the hospital with epigastric pain, nausea and vomiting associated with alcohol use. And elevated lipase consistent with pancreatitis. Was started on IV fluid resuscitation, analgesics, clear liquid diet. Had CT
scan of chest that ruled out pulmonary emboli, lower extremity ultrasound ruled out DVTs. Chest x-ray without acute processes. Had quick clinical improvement with resolution of pain and other symptoms. With alcohol history, absence of elevated
LFTs or other signs of gallstone disease, very likely alcohol induced pancreatitis. Patient was educated on alcohol cessation. Started on B vitamin supplements with thiamine and folic acid. Recommended alcohol abstinence and outpatient follow-up
with family doctor. Was able to tolerate breakfast and lunch on 07/01/2024 without any recurrence of gastrointestinal symptoms. Of note, CT scan in hospital was deferred by GI due to rapidly improving symptoms.
Consult:
Billy Hyde -- gastroenterology
Important imaging findings : N/A
Procedure findings : N/A
Follow-up: PCP in 1 to 2-week
Discharge Plan
-
Patient Disposition: Home (Routine Discharge)
Discharge Diagnosis/Procedures: Acute pancreatitis likely from alcohol use
Condition: Good
Diet: No restrictions
Additional Diets: Avoid alcohol as this will increase your risk of developing pancreatitis again
Activity: As tolerated
Driving Restrictions: As prior to admission
Bathing Restrictions: None
Blood Work: None
Others Tests: None
Activity Restrictions/Additional Instructions:
Schedule follow-up appointment with your family doctor, should be seen in office within 1-2 weeks of discharge from the hospital
Instructions: Acute pancreatitis
Referrals:
Marybeth Humphrey PA [Family Provider] -
Additional Discharge Medication Instructions: Take folic acid 1 mg daily and thiamine 100 mg twice daily every day
Prescriptions:
New
folic acid 1 mg Tablet
1 mg PO DAILY 30 Days Qty: 30 0RF
thiamine mononitrate (vit B1) 100 mg Tablet
100 mg PO BID 30 Days Qty: 60 0RF
Continued
fluoxetine 40 mg Capsule
40 mg PO DAILY
pantoprazole 40 mg tablet,delayed release (DR/EC)
40 mg PO DAILY Qty: 30 0RF
Discharge Orders:
Discharge Patient (As Directed); Ordered 07/01/24
Ordered By: Billy Woods
Discharge Date and Time
Discharge Date/Time: 07/01/24 11:57
Print Language: TELUGU
== END 2024-07-01 11:57 | disposition home or self-care (01) | DRG 440 ==
LOC: 2 NORTH 12:50
PROVIDERS: Hospitalist; ADMITTING PHYSICIAN Internal Medicine; ATTENDING PHYSICIAN Internal Medicine; CONSULT PHYSICIAN Internal Medicine Gastroenterology; EMERGENCY PHYSICIAN Emergency Medicine; FAMILY PHYSICIAN Nurse Practitioner Family
DX: K85.20 Alcohol induced acute pancreatitis without necrosis or infection (principal); F10.10 Alcohol abuse, uncomplicated; K21.9 Gastro-esophageal reflux disease without esophagitis; Z79.899 Other long term (current) drug therapy
CPT/HCPCS: 80053; 80306; 80307; 82077; 82977; 83690; 83735; 84100; 85025; 85027; 85610; 85730; 93005; 96361; 96374; 96375; 99284